=== PATIENT | female | born 1990 | race Asian ===

== ENCOUNTER 2021-03-22 06:23 | Inpatient (IN) | payer OTHER ==
[~2021-03-22] VITALS: Ht 154.9 cm; Wt 79.5 kg
[~2021-03-22 06:23] MED LIST: IBUP-1222 PO; OXYC1TAB14 PO; PREN1TAB60 PO
[2021-03-22] MEDS ORDERED: LACTATED RINGERS 1,000 ML IV SCH (07:00)
[2021-03-22] MEDS ORDERED: METOCLOPRAMIDE 5 MG/ML, 2ML IV ONE (07:00)
[2021-03-22] MEDS ORDERED: SODIUM CITRATE/CITRIC ACID 30 ML UDC PO ONE (07:00)
[2021-03-22] MEDS ORDERED: LACTATED RINGERS 1,000 ML IVBOLUS ONE (07:00)
[2021-03-22 07:49] VITALS: BP 116/73
[2021-03-22 08:02] LABS: BASOPHILS % (AUTO) 0 % (0-1); EOSINOPHILS % (AUTO) 1 % (1-7); LYMPHOCYTES % (AUTO) 20 % (22-44); MEAN CORPUSCULAR HEMOGLOBIN 27.9 pg (27.0-34.8); MEAN CORPUSCULAR HGB CONC 33.4 g/dL (32.4-35.8); MEAN PLATELET VOLUME 7.1 fL (7.4-10.4); MONOCYTES % (AUTO) 8 % (2-9); NEUTROPHILS % (AUTO) 71 % (42-75); PLATELET COUNT 271 x10^3/uL (130-400); RED BLOOD COUNT 4.43 x10^6/uL (3.82-5.3); RED CELL DISTRIBUTION WIDTH 14.3 % (9.6-15.2)
[2021-03-22] MEDS ORDERED: NEWBORN KIT ONE (08:31)
[2021-03-22] MEDS ORDERED: OXYTOCIN 30U/ 0.9% NaCL 500ML 500 ML ONE (08:32)
[2021-03-22] MEDS ORDERED: SODIUM CITRATE/CITRIC ACID 15 ML UDC ONE (08:32)
[2021-03-22] MEDS ORDERED: PROMETHAZINE 25 MG/ML, 1ML IV PRN (10:00)
[2021-03-22] MEDS ORDERED: FENTANYL PF 100 MCG/2ML IV PRN (10:00)
[2021-03-22] MEDS ORDERED: ALBUTEROL SULFATE 2.5 MG/3 ML NPPB PRN (10:00)
[2021-03-22] MEDS ORDERED: METOPROLOL 1 MG/ML, 5ML IV PRN (10:00)
[2021-03-22] MEDS ORDERED: EPHEDRINE 50 MG/ML, 1ML IVPush PRN (10:00)
[2021-03-22] MEDS ORDERED: hydrALAzine 20 MG/ML, 1ML IV PRN (10:00)
[2021-03-22] MEDS ORDERED: LABETALOL 5MG/ML, 20ML IV PRN (10:00)
[2021-03-22] MEDS ORDERED: HYDROcodone/APAP 7.5-325MG/15ML UDC PO PRN (10:00)
[2021-03-22] MEDS ORDERED: MEPERIDINE/PF 25MG/0.5ML IVPush PRN (10:00)
[2021-03-22] MEDS ORDERED: HYDROmorphone 2 MG/ML, 1ML IVPush PRN (10:00)
[2021-03-22] MEDS ORDERED: MIDAZOLAM 1 MG/ML, 2ML IV PRN (10:00)
[2021-03-22] MEDS ORDERED: OXYcodone 5 MG/5 ML ORAL.SOL UDC PO PRN (10:00)
[2021-03-22] MEDS ORDERED: ONDANSETRON 2MG/ML, 2ML IVPush PRN (10:00)
[2021-03-22] MEDS ORDERED: ONDANSETRON 2MG/ML, 2ML ONE (11:06)
[2021-03-22] MEDS ORDERED: FENTANYL PF 100 MCG/2ML ONE (11:06)
[2021-03-22] MEDS ORDERED: KETOROLAC 30 MG/1 ML ONE (11:06)
[2021-03-22] MEDS ORDERED: EPHEDRINE 50 MG/ML, 1ML ONE (11:06)
[2021-03-22] MEDS ORDERED: PHENYLEPHRINE 10 MG/ML ONE (11:06)
[2021-03-22] MEDS ORDERED: DEXAMETHASONE 4 MG/ML, 1ML ONE (11:06)
[2021-03-22] MEDS ORDERED: OXYTOCIN 10 UNITS/ML, 1ML ONE (11:06)
[2021-03-22] MEDS ORDERED: CEFAZOLIN 1,000 MG ONE (11:06)
[2021-03-22] MEDS ORDERED: HYDROmorphone 2 MG/ML, 1ML ONE (11:07)
[2021-03-22] MEDS ORDERED: IBUPROFEN 800 MG TABLET PO PRN (13:30)
[2021-03-22] MEDS ORDERED: DIPH,PERTUSS(ACELL),TET VAC/PF NC IM-VACC PRN (13:30)
[2021-03-22] MEDS ORDERED: METHYLERGONOVINE 0.2 MG/ML IM PRN (13:30)
[2021-03-22] MEDS ORDERED: CALCIUM CARBONATE 500 MG TAB.CHEW PO PRN (13:30)
[2021-03-22] MEDS ORDERED: ACETAMINOPHEN 325 MG TABLET PO PRN (13:30)
[2021-03-22] MEDS ORDERED: MORPHINE SULFATE 4 MG/ML, 1ML IVPush PRN (13:30)
[2021-03-22] MEDS ORDERED: METOCLOPRAMIDE 5 MG/ML, 2ML IV PRN (13:30)
[2021-03-22] MEDS: LACTATED RINGERS 1,000 ML IV SCH ×3 (13:30→21:55)
[2021-03-22] MEDS ORDERED: ONDANSETRON 2MG/ML, 2ML IV PRN (13:30)
[2021-03-22] MEDS ORDERED: MISOPROSTOL 200 MCG TABLET SL PRN (13:30)
[2021-03-22] MEDS: OXYTOCIN 30U/ 0.9% NaCL 500ML 500 ML IV SCH (14:05)
[2021-03-22 14:15] VITALS: BP 109/70
[2021-03-22] MEDS: DOCUSATE 100 MG CAPSULE PO SCH (19:23)
[2021-03-22] MEDS: KETOROLAC 30 MG/1 ML IV SCH (19:23)
[2021-03-22] MEDS: OXYcodone IR 5MG TABLET PO PRN ×2 (19:24→23:55)
[2021-03-22 19:33] VITALS: BP 127/66
[2021-03-22 20:48] LABS: BASOPHILS % (AUTO) 0 % (0-1); EOSINOPHILS % (AUTO) 0 % (1-7); LYMPHOCYTES % (AUTO) 8 % (22-44); MEAN CORPUSCULAR HEMOGLOBIN 27.8 pg (27.0-34.8); MEAN CORPUSCULAR HGB CONC 33.6 g/dL (32.4-35.8); MONOCYTES % (AUTO) 5 % (2-9); NEUTROPHILS % (AUTO) 87 % (42-75); PLATELET COUNT 233 x10^3/uL (130-400); RED BLOOD COUNT 4.31 x10^6/uL (3.82-5.3); RED CELL DISTRIBUTION WIDTH 13.9 % (9.6-15.2)
[2021-03-22 23:52] VITALS: BP 106/70
[2021-03-23] MEDS: LACTATED RINGERS 1,000 ML IV SCH ×6 (00:05→21:30)
[2021-03-23] MEDS: OXYTOCIN 30U/ 0.9% NaCL 500ML 500 ML IV SCH ×3 (00:05→19:30)
[2021-03-23] MEDS: KETOROLAC 30 MG/1 ML IV SCH ×3 (01:27→13:00)
[2021-03-23 04:04] VITALS: BP 102/64
[2021-03-23] MEDS: PRENATAL VIT/IRON/FA 1 EACH TABLET PO SCH (07:17)
[2021-03-23] MEDS: DOCUSATE 100 MG CAPSULE PO SCH ×2 (07:17→19:53)
[2021-03-23 08:16] VITALS: BP 105/70
[2021-03-23] MEDS: OXYcodone IR 5MG TABLET PO PRN ×3 (12:57→22:49)
[2021-03-23] MEDS ORDERED: IBUPROFEN 600 MG TABLET ONE (13:29)
[2021-03-23] MEDS: IBUPROFEN 600 MG TABLET PO PRN ×2 (13:58→19:53)
[2021-03-23 20:14] VITALS: BP 116/80
[2021-03-24] MEDS: SIMETHICONE 80 MG CHEW TAB PO PRN ×2 (02:03→07:46)
[2021-03-24] MEDS: IBUPROFEN 600 MG TABLET PO PRN ×2 (02:03→07:47)
[2021-03-24] MEDS: OXYcodone IR 5MG TABLET PO PRN (06:06)
[2021-03-24 07:40] VITALS: BP 108/70
[2021-03-24] MEDS: DOCUSATE 100 MG CAPSULE PO SCH (07:46)
[2021-03-24] MEDS: PRENATAL VIT/IRON/FA 1 EACH TABLET PO SCH (07:46)
[2021-03-24] MEDS ORDERED: OXYC1TAB14 PO (07:48)
[2021-03-24] MEDS ORDERED: DOCU-131 PO (07:48)
[2021-03-24] MEDS ORDERED: IBUP-1222 PO (07:48)
== END 2021-03-24 14:37 | disposition home or self-care (01) | DRG 788 ==
LOC: LDIP 06:23 → 2NW 14:12
PROVIDERS: ADMIT Obstetrics & Gynecology; ATTEND Obstetrics & Gynecology
PROC: 10D00Z1 Extraction of Products of Conception, Low, Open Approach (ICD-10-PCS; principal; 2021-03-22)
DX: O43.123 Velamentous insertion of umbilical cord, third trimester (principal); J45.909 Unspecified asthma, uncomplicated; O99.52 Diseases of the respiratory system complicating childbirth; O69.81X0 Labor and delivery complicated by cord around neck, without compression, not applicable or unspecified; O34.211 Maternal care for low transverse scar from previous cesarean delivery; Z20.822 Contact with and (suspected) exposure to COVID-19; Z37.0 Single live birth; Z3A.39 39 weeks gestation of pregnancy
CPT/HCPCS: 36415; 85025; 86592; 86850; 86900; 87635; G0378; J0690; J1100; J1170; J1885; J2405; J3010; J2370; J2590; J7120